=== PATIENT | female | born 1955 | race African-American/Black ===

== ENCOUNTER 2017-03-11 18:26 | Emergency (ER) | payer MEDICAID ==
[~2017-03-11] VITALS: Ht 162.6 cm; Wt 60.0 kg
[~2017-03-11 18:26] MED LIST: ASPI-1159 PO; FURO-151 PO; METO50TA5 PO
[2017-03-11 19:01] VITALS: BP 138/86
[2017-03-11 19:34] LABS: BASOPHILS % 0.4 % (0.0-2.0); EOSINOPHILS % 0.4 % (0.0-5.0); HEMATOCRIT. 37.3 % (36.0-48.0); HEMOGLOBIN. 12.2 g/dL (12.0-16.0); LYMPHOCYTES % 16.1 % (20.0-50.0); MEAN CORPUSCULAR HEMOGLOBIN 30.8 pg (28.0-32.0); MEAN CORPUSCULAR VOLUME 94.7 fL (81.0-99.0); MEAN PLATELET VOLUME 7.5 fl (7.4-10.4); MONOCYTES % 6.4 % (2.0-8.0); NEUTROPHILS % 76.7 % (40.0-76.0); PLATELET 348 x1000/uL (130-400); RED BLOOD CELL COUNT 3.94 mill/uL (4.2-5.4); RED CELL DISTRIBUTION WIDTH 14.4 % (11.6-14.6)
[2017-03-11 19:36] LABS: INR 1.1; PROTHROMBIN TIME 11.4 sec
[2017-03-11 19:40] LABS: CARBON DIOXIDE 34 mEq/L (21-32); CHLORIDE 95 mEq/L (98-107)
== END 2017-03-11 22:00 | disposition home or self-care (01) ==
LOC: ER 19:24
DX: R11.2 Nausea with vomiting, unspecified (principal); I12.0 Hypertensive chronic kidney disease with stage 5 chronic kidney disease or end stage renal disease; N18.6 End stage renal disease; I25.10 Atherosclerotic heart disease of native coronary artery without angina pectoris; Z99.2 Dependence on renal dialysis; Z79.82 Long term (current) use of aspirin
CPT/HCPCS: 36415; 71010; 80053; 83605; 85025; 85610; 87040; 93005; 99285; Z7610; 81003

== ENCOUNTER 2017-06-29 06:09 | Inpatient (IN) | payer MEDICAID ==
[2017-06-29] VITALS (30 sets, daily range): BP systolic 113–192; BP diastolic 66–111
[~2017-06-29] VITALS: Ht 142.2 cm; Wt 69.9 kg
[2017-06-29] MEDS ORDERED: NITROGLYCERIN 50MG PREMIX 250 ML IV ONE (06:15)
[2017-06-29 06:41] LABS: BASOPHILS % 0.9 % (0.0-2.0); EOSINOPHILS % 7.2 % (0.0-5.0); HEMOGLOBIN. 9.6 g/dL (12.0-16.0); LYMPHOCYTES % 46.1 % (20.0-50.0); MEAN CORPUSCULAR HEMOGLOBIN 31.3 pg (28.0-32.0); MEAN CORPUSCULAR VOLUME 98.1 fL (81.0-99.0); MEAN PLATELET VOLUME 7.5 fl (7.4-10.4); MONOCYTES % 9.3 % (2.0-8.0); NEUTROPHILS % 36.5 % (40.0-76.0); PLATELET 357 x1000/uL (130-400); RED BLOOD CELL COUNT 3.05 mill/uL (4.2-5.4); RED CELL DISTRIBUTION WIDTH 14.9 % (11.6-14.6)
[2017-06-29 06:45] LABS: PROTHROMBIN TIME 10.7 sec (9.4-11.6)
[2017-06-29 06:54] LABS: CARBON DIOXIDE 25 mEq/L (21-32); CHLORIDE 101 mEq/L (98-107); TROPONIN I 0.24 ng/mL (0.00-0.04)
[2017-06-29 07:01] LABS: PARTIAL THROMBOPLASTIN TIME < 20.0 sec (23.4-31.0)
[2017-06-29 11:29] LABS: BG BILEVEL POS AIRWAY PRESSURE 15/5; BG DEOXYHEMOGLOBIN 0.7 % (0.0-5.0); BG FRACTION INSPIRED OXYGEN 50; BG HCO3 ACT 24.3 mmol/L (22.0-26.0); BG METHEMOGLOBIN 0.2 % (0.0-1.5); BG OXYGEN SATURATION 99.3 % (92.0-98.5); BG OXYHEMOGLOBIN 99.1 % (94.0-97.0); BG PH 7.423 (7.350-7.450); BG PO2 209.5 mmHg (75.0-100.0); BG SAMPLE SITE RIGHT BRACHIAL; BG TOTAL HEMOGLOBIN 10.2 g/dL (12.0-18.0); BG VENT MODE MASK - BIPAP; BG VENT RATE 16 set
[2017-06-29] MEDS ORDERED: NITROGLYCERIN 50MG PREMIX 250 ML IV SCH (14:30)
[2017-06-29] MEDS: AMLODIPINE 5MG TABLET PO SCH ×2 (14:50→21:31)
[2017-06-29] MEDS ORDERED: PNEUMOCOCCAL 23-VAL P-SAC VAC 0.5 ML IM ONE (20:30)
[2017-06-29] MEDS ORDERED: EPOETIN ALFA 10000UNITS/ML VIAL SUBCUT SCH (21:00)
[2017-06-30] VITALS (30 sets, daily range): BP systolic 71–165; BP diastolic 45–103
[2017-06-30 05:37] LABS: BASOPHILS % 0.7 % (0.0-2.0); EOSINOPHILS % 6.3 % (0.0-5.0); HEMATOCRIT. 29.2 % (36.0-48.0); HEMOGLOBIN. 9.6 g/dL (12.0-16.0); LYMPHOCYTES % 40.1 % (20.0-50.0); MEAN CORPUSCULAR HEMOGLOBIN 31.4 pg (28.0-32.0); MEAN CORPUSCULAR VOLUME 95.6 fL (81.0-99.0); MEAN PLATELET VOLUME 7.4 fl (7.4-10.4); MONOCYTES % 14.4 % (2.0-8.0); NEUTROPHILS % 38.5 % (40.0-76.0); PLATELET 321 x1000/uL (130-400); RED BLOOD CELL COUNT 3.05 mill/uL (4.2-5.4); RED CELL DISTRIBUTION WIDTH 14.6 % (11.6-14.6)
[2017-06-30 06:31] LABS: TROPONIN I 1.2 ng/mL (0.00-0.04)
[2017-06-30] MEDS: SEVELAMER CARBONATE 800 MG TABLET PO SCH ×3 (08:12→16:39)
[2017-06-30] MEDS: IRON SUCROSE COMPLEX 100 MG/5 ML ML IV SCH (08:30)
[2017-06-30] MEDS: FUROSEMIDE 40MG TABLET PO SCH ×2 (08:30→16:39)
[2017-06-30] MEDS: METOPROLOL TARTRATE 50MG TABLET PO SCH ×2 (08:31→16:39)
[2017-06-30] MEDS: LISINOPRIL 10MG TABLET PO SCH ×2 (08:32→20:32)
[2017-06-30] MEDS: AMLODIPINE 5MG TABLET PO SCH ×2 (08:32→20:32)
[2017-06-30] MEDS: ASPIRIN 81MG EC TABLET PO SCH (08:44)
[2017-06-30] MEDS ORDERED: METOPROLOL TARTRATE 50MG TABLET PO SCH (09:00)
[2017-06-30] MEDS ORDERED: LIDOCAINE HCL 1% 20ML VIAL (Pyxis) INJ ONE (11:45)
[2017-06-30] MEDS ORDERED: TRAM50TA3 PO (12:35)
[2017-06-30] MEDS ORDERED: CALC0.253 PO (12:35)
[2017-06-30] MEDS ORDERED: CARV6.2548 PO (12:35)
[2017-06-30] MEDS ORDERED: CALCIUM PO (12:35)
[2017-06-30] MEDS ORDERED: ZOLP5TAB8 PO (12:35)
[2017-06-30] MEDS ORDERED: FERR325T6 PO (12:35)
[2017-06-30] MEDS ORDERED: LACTULOSE 20G/30ML UDC PO PRN (20:00)
[2017-07-01 00:06] VITALS: BP 136/84
[2017-07-01 04:00] VITALS: BP 149/97
[2017-07-01 05:34] LABS: EOSINOPHILS % 3.7 % (0.0-5.0); HEMATOCRIT. 30.8 % (36.0-48.0); LYMPHOCYTES % 42.9 % (20.0-50.0); MEAN CORPUSCULAR HEMOGLOBIN 31.1 pg (28.0-32.0); MEAN CORPUSCULAR VOLUME 96.1 fL (81.0-99.0); MEAN PLATELET VOLUME 7.4 fl (7.4-10.4); MONOCYTES % 12.3 % (2.0-8.0); NEUTROPHILS % 40.1 % (40.0-76.0); PLATELET 324 x1000/uL (130-400); RED CELL DISTRIBUTION WIDTH 14.6 % (11.6-14.6)
[2017-07-01] MEDS: SEVELAMER CARBONATE 800 MG TABLET PO SCH ×3 (07:40→18:36)
[2017-07-01 08:00] VITALS: BP 107/53
[2017-07-01 08:29] LABS: TROPONIN I 0.69 ng/mL (0.00-0.04)
[2017-07-01] MEDS ORDERED: LISINOPRIL 10MG TABLET PO SCH (09:00)
[2017-07-01] MEDS: METOPROLOL TARTRATE 50MG TABLET PO SCH ×2 (09:00→18:36)
[2017-07-01] MEDS: AMLODIPINE 5MG TABLET PO SCH (09:00)
[2017-07-01 12:00] VITALS: BP 132/75
[2017-07-01] MEDS: FUROSEMIDE 40MG TABLET PO SCH ×2 (15:14→18:35)
[2017-07-01] MEDS: IRON SUCROSE COMPLEX 100 MG/5 ML ML IV SCH (15:14)
[2017-07-01] MEDS: ASPIRIN 81MG EC TABLET PO SCH (15:14)
[2017-07-01 20:02] VITALS: BP 135/78
[2017-07-01] MEDS ORDERED: EPOETIN ALFA 10000UNITS/ML VIAL SUBCUT SCH (21:00)
== END 2017-07-01 21:00 | disposition left against medical advice (07) | DRG 133 ==
LOC: ER 06:12 → EDBEDREQ 07:43 → ENRESERV 11:23 → MICUSO 12:11 → 8WST 06-30 18:20
PROVIDERS: ADMIT Internal Medicine; ATTEND Internal Medicine
PROC: 5A09357 Assistance with Respiratory Ventilation, Less than 24 Consecutive Hours, Continuous Positive Airway Pressure (ICD-10-PCS; principal; 2017-06-29)
PROC: 5A1D00Z (ICD-10-PCS; 2017-06-29)
PROC: 02PYX3Z Removal of Infusion Device from Great Vessel, External Approach (ICD-10-PCS; 2017-06-30)
PROC: 0JPT3XZ Removal of Tunneled Vascular Access Device from Trunk Subcutaneous Tissue and Fascia, Percutaneous Approach (ICD-10-PCS; 2017-06-30)
DX: J96.00 Acute respiratory failure, unspecified whether with hypoxia or hypercapnia (principal); I50.23 Acute on chronic systolic (congestive) heart failure; E87.2 Acidosis; N18.6 End stage renal disease; R65.10 Systemic inflammatory response syndrome (SIRS) of non-infectious origin without acute organ dysfunction; I42.0 Dilated cardiomyopathy; I13.2 Hypertensive heart and chronic kidney disease with heart failure and with stage 5 chronic kidney disease, or end stage renal disease; E44.1 Mild protein-calorie malnutrition; I27.2 Other secondary pulmonary hypertension; Z68.34 Body mass index [BMI] 34.0-34.9, adult; E87.5 Hyperkalemia; D63.1 Anemia in chronic kidney disease; J44.9 Chronic obstructive pulmonary disease, unspecified; F17.210 Nicotine dependence, cigarettes, uncomplicated; Z53.21 Procedure and treatment not carried out due to patient leaving prior to being seen by health care provider; I25.10 Atherosclerotic heart disease of native coronary artery without angina pectoris; Z79.899 Other long term (current) drug therapy; Z86.73 Personal history of transient ischemic attack (TIA), and cerebral infarction without residual deficits; Z99.2 Dependence on renal dialysis; Z79.82 Long term (current) use of aspirin; Z71.6 Tobacco abuse counseling
CPT/HCPCS: 36415; 36589; 36600; 71010; 80048; 80053; 82375; 82805; 83605; 83880; 84484; 85025; 85610; 85730; 87040; 93005; 93306; 94660; 96374; 99291; 99406; J0885; J3490; J7030

== ENCOUNTER 2018-02-05 09:35 | Emergency (ER) | payer MEDICAID ==
[~2018-02-05] VITALS: Ht 154.9 cm; Wt 70.0 kg
[~2018-02-05 09:35] MED LIST changes: +CALC0.253 PO; +CALCIUM PO; +CARV6.2548 PO; +FERR325T6 PO; +METO-539 PO; -METO50TA5 PO; +TRAM50TA3 PO; +ZOLP5TAB8 PO
[2018-02-05] MEDS ORDERED: LIDOCAINE HCL 1% 20ML VIAL (Pyxis) INJ MC ONE (15:45)
[2018-02-05] MEDS ORDERED: LIDOCAINE HCL/PF 1% 10 MG/ML 30ML VIAL INFIL ONE (16:07)
[2018-02-05 17:28] VITALS: BP 172/82
== END 2018-02-05 17:43 | disposition home or self-care (01) ==
LOC: ER 09:35
DX: L02.413 Cutaneous abscess of right upper limb (principal); I13.2 Hypertensive heart and chronic kidney disease with heart failure and with stage 5 chronic kidney disease, or end stage renal disease; N18.6 End stage renal disease; I50.9 Heart failure, unspecified; Z99.2 Dependence on renal dialysis; F17.210 Nicotine dependence, cigarettes, uncomplicated; Z79.82 Long term (current) use of aspirin; Z79.899 Other long term (current) drug therapy
CPT/HCPCS: 10060; 99283; J3490

== ENCOUNTER 2018-02-09 11:12 | Emergency (ER) | payer MEDICAID ==
[~2018-02-09] VITALS: Ht 154.9 cm; Wt 71.0 kg
[2018-02-09 11:17] VITALS: BP 118/67
[2018-02-09] MEDS ORDERED: ACETAMINOPHEN 325MG TABLET PO ONE (13:15)
== END 2018-02-09 14:01 | disposition home or self-care (01) ==
LOC: ER 12:21
DX: Z48.01 Encounter for change or removal of surgical wound dressing (principal); I13.2 Hypertensive heart and chronic kidney disease with heart failure and with stage 5 chronic kidney disease, or end stage renal disease; I50.9 Heart failure, unspecified; N18.6 End stage renal disease; Z99.2 Dependence on renal dialysis; Z98.890 Other specified postprocedural states; Z79.82 Long term (current) use of aspirin
CPT/HCPCS: 99282